=== PATIENT | female | born 1955 | race Caucasian/White ===

== ENCOUNTER 2022-03-21 00:38 | Emergency (ER) | payer SELFPAY ==
[~2022-03-21] VITALS: Ht 144.8 cm; Wt 49.9 kg
[2022-03-21 01:10] VITALS: BP 120/94
--- NOTE | 2022-03-21 01:10 | NUR ---
BIBSELF C/O stomach ulcer and mouth sores
[2022-03-21] MEDS ORDERED: PANT40TA2 PO (01:27)
--- NOTE | 2022-03-21 01:38 | NUR ---
Patient discharged to home in stable condition. RX Written and verbal after care instructions given. Patient verbalizes understanding of instruction. PT ambulatory with a steady gait
== END 2022-03-21 01:39 | disposition home or self-care (01) ==
LOC: ER 00:42
DX: K27.9 Peptic ulcer, site unspecified, unspecified as acute or chronic, without hemorrhage or perforation (principal); K12.0 Recurrent oral aphthae; M06.9 Rheumatoid arthritis, unspecified; Z60.2 Problems related to living alone; Z79.899 Other long term (current) drug therapy